=== PATIENT | male | born 1980 | race African-American/Black ===

== ENCOUNTER 2017-01-15 22:06 | Emergency (ER) | payer MEDICAID ==
[~2017-01-15] VITALS: Ht 193 cm; Wt 165.4 kg
[2017-01-16] MEDS ORDERED: IBUPROFEN 800MG TABLET PO ONE (01:15)
[2017-01-16 02:17] VITALS: BP 139/85
== END 2017-01-16 02:30 | disposition home or self-care (01) ==
LOC: ER 22:06
DX: M10.071 Idiopathic gout, right ankle and foot (principal); J45.909 Unspecified asthma, uncomplicated; Z91.010 Allergy to peanuts
CPT/HCPCS: 73630; 99284

== ENCOUNTER 2019-01-15 05:13 | Emergency (ER) | payer MEDICAID ==
[~2019-01-15] VITALS: Ht 195.6 cm; Wt 143.2 kg
[2019-01-15] MEDS ORDERED: DIAZEPAM 2 MG TABLET PO ONE (11:30)
[2019-01-15] MEDS ORDERED: PREDNISONE 20MG TABLET PO ONE (11:30)
[2019-01-15] MEDS ORDERED: KETOROLAC 30MG/ML VIAL IV ONE (11:30)
[2019-01-15 11:33] VITALS: BP 140/85
== END 2019-01-15 11:37 | disposition home or self-care (01) ==
LOC: ER 05:13
DX: J06.9 Acute upper respiratory infection, unspecified (principal); F17.200 Nicotine dependence, unspecified, uncomplicated; J44.9 Chronic obstructive pulmonary disease, unspecified; J30.2 Other seasonal allergic rhinitis; Z91.010 Allergy to peanuts
CPT/HCPCS: 99282; Z7610